=== PATIENT | male | born 1975 | race African-American/Black ===

== ENCOUNTER 2019-11-09 19:55 | Emergency (ER) | payer OTHER, SELFPAY ==
[2019-11-09 20:20] VITALS: BP 178/93; PULSE 104; RESP 18; TEMP 36.9; O2SAT 100
[2019-11-09 20:54] LABS: Basophils Percent Auto 0.6 % (0.2-1.2); Eosinophils Absolute Auto 0.2 K/mm3 (0-0.3); Eosinophils Percent Auto 2.5 % (0-4.4); Hematocrit 44.3 % (42.0-52.0); Hemoglobin 14.9 g/dL (14.0-18.0); Immature Granulocyte Absolute 0.01 K/mm3 (0.00-0.031); Immature Granulocyte Percent A 0.1 % (0-0.5); Lymphocytes Absolute Auto 2.14 K/mm3 (0.9-3.2); Lymphocytes Percent Auto 31.4 % (18.3-44.2); Mean Corpuscular HGB Conc 33.6 g/dl (32-36); Mean Corpuscular Hemoglobin 31.4 pg (26-34); Mean Corpuscular Volume 93.5 fl (80-100); Mean Platelet Volume 10.4 fl (7.4-10.4); Monocytes Absolute Auto 0.6 K/mm3 (0.1-0.6); Monocytes Percent Auto 8.4 % (2.6-8.5); Neutrophils Absolute Auto 3.9 K/mm3 (1.3-6.7); Platelet Count Result 261 k/mm3 (150-375); Red Blood Count 4.74 M/mm3 (4.6-6.20); Red Cell Distribution Width 11.3 % (11.5-14.5); White Blood Count 6.8 K/mm3 (4.5-10.0)
[2019-11-09 21:06] LABS: Alanine Aminotransferase 23 U/L (4-50); Albumin Level 4.6 g/dL (3.5-5.1); Alkaline Phosphatase 60 U/L (38-126); Aspartate Amino Transferase 29 U/L (17-59); Bilirubin,Total 0.4 mg/dL (0.2-1.3); Blood Urea Nitrogen 28 mg/dL (9-20); Calcium 9.1 mg/dL (8.4-10.2); Carbon Dioxide 26 mmol/L (22-30); Chloride 98 mmol/L (98-107); Estimated CRCL calculation 61 ml/min; Estimated Glomerular Filt Rate > 60; Glucose 100 mg/dL (75-110); Lipase 125 U/L (23-300); Potassium 4.4 mmol/L (3.4-5.0); Sodium 138 mmol/L (137-145)
--- NOTE | 2019-11-09 21:15 | ED.NAVMDI ---
HPI - Nausea/Vomiting/Diarrhea General Chief complaint: Nausea/Vomiting/Diarrhea Stated complaint: spider bite Time Seen by Provider: 11/09/19 21:12 Related Data Home Medications Medication Instructions Recorded Confirmed amlodipine 10 mg PO DAILY 07/28/19 07/28/19 Allergies Allergy/AdvReac Type Severity Reaction Status Date / Time hydrocodone [From Vicodin] Allergy Hives Verified 07/28/19 12:20 Iodinated Contrast Media AdvReac Nausea and Verified 07/28/19 12:20 Vomiting PMFSH Past Medical History Medical History (Updated 07/29/19 @ 13:01 by Hema Romero PA-C) Atypical chest pain Boil of buttock with surgery Hyperlipidemia Hypertension Surgical History Surgical History (Updated 07/28/19 @ 02:43 by Socorro Izaguirre) History of orthopedic surgery lt fingers Family History Family History (Updated 07/28/19 @ 12:32 by Jennifer Zapata RN) Father Hypertension Diabetes mellitus Social History Social History (Updated 07/28/19 @ 02:43 by Socorro Izaguirre) Smoking packs per day: 0.25 Smoking cigarettes per day: 5.0 Years smoked: 10 Smoking pack-years: 2.50 Smoking status: Former smoker Tobacco type: cigarettes Alcohol intake: current Substance use: current Substance use type: marijuana Other substance usage details: DRINKS @ 1/2 P[place]OD[place] DAILY Last use: 07/25/19 Gender identity (if verbalized by the patient): Male Spiritual care concerns: No Agree to blood products: No Course Vital Signs Vital signs: Vital Signs Temperature 36.9 C 11/09/19 20:20 Pulse Rate 104 H 11/09/19 20:20 Respiratory Rate 18 11/09/19 20:20 Blood Pressure 178/93 H 11/09/19 20:20 Pulse Oximetry 100 11/09/19 20:20 Temperature 36.9 C 11/09/19 20:20 Pulse Rate 104 H 11/09/19 20:20 Respiratory Rate 18 11/09/19 20:20 Blood Pressure 178/93 H 11/09/19 20:20 Pulse Oximetry 100 11/09/19 20:20 MDM - Nausea/Vomiting/Diarrhea Lab Data Result diagrams: 11/09/19 20:47 11/09/19 20:47 Labs: Lab Results 11/09/19 11/09/19 Range/Units 20:47 20:47 WBC 6.8 (4.5-10.0) K/mm3 RBC 4.74 (4.6-6.20) M/mm3 Hgb 14.9 (14.0-18.0) g/dL Hct 44.3 (42.0-52.0) % MCV 93.5 (80-100) fl MCH 31.4 (26-34) pg MCHC 33.6 (32-36) g/dl RDW 11.3 L (11.5-14.5) % Plt Count 261 (150-375) k/mm3 MPV 10.4 (7.4-10.4) fl Immature Gran % (Auto) 0.1 (0-0.5) % Neut % (Auto) 57.0 (45.5-73.1) % Lymph % (Auto) 31.4 (18.3-44.2) % [place] % (Auto) 8.4 (2.6-8.5) % Eos % (Auto) 2.5 (0-4.4) % Baso % (Auto) 0.6 (0.2-1.2) % Lymph # (Auto) 2.14 (0.9-3.2) K/mm3 [place] # (Auto) 0.6 (0.1-0.6) K/mm3 Eos # (Auto) 0.2 (0-0.3) K/mm3 Baso # (Auto) 0.0 (0.0-0.1) K/mm3 Abs Immat Gran (auto) 0.01 (0.00-0.031) K/mm3 Absolute Neuts (auto) 3.9 (1.3-6.7) K/mm3 Absolute Nucleated RBC 0.0 (0.0-0.012) K/mm3 Nucleated RBC % 0.0 (0.0-0.2) % Sodium 138 (137-145) mmol/L Potassium 4.4 (3.4-5.0) mmol/L Chloride 98 (98-107) mmol/L Carbon Dioxide 26 (22-30) mmol/L BUN 28 H (9-20) mg/dL Creatinine 1.30 (0.7-1.3) mg/dL Estim Creat Clear Calc 61 ml/min Estimated GFR > 60 (59 - ) Glucose 100 (75-110) mg/dL Calcium 9.1 (8.4-10.2) mg/dL Total Bilirubin 0.4 (0.2-1.3) mg/dL AST 29 (17-59) U/L ALT 23 (4-50) U/L Alkaline Phosphatase 60 (38-126) U/L Total Protein 8.0 (6.3-8.2) g/dL Albumin 4.6 (3.5-5.1) g/dL Lipase 125 (23-300) U/L Discharge Plan Discharge Prescriptions: No Action amlodipine 10 mg tablet 10 mg PO DAILY RF: 0
[2019-11-09 21:27] VITALS: BP 150/90; PULSE 81; RESP 16; TEMP 36.5; O2SAT 100
[2019-11-09 21:28] VITALS: BP 150/113; BP 151/81; BP 153/98; PULSE 81; PULSE 86; PULSE 91
--- NOTE | 2019-11-09 21:31 | ED.WOUNDLAC ---
HPI - Wound/Laceration General Chief Complaint: Wound/Laceration Stated Complaint: spider bite Time Seen by Provider: 11/09/19 21:12 Source: patient and RN notes reviewed Mode of arrival: other Limitations: no limitations History of Present Illness HPI narrative: Pt is a 43 y/o male who presents to the ED with c/o erythema and pain to his LLE that began a week ago after a possible spider bite. Pt was given abx for his sx, but he states the abx gave him diarrhea so he stopped taking the medication. Pt was recommended to come to the ED for further evaluation. Pt denies a fever and nasuea. Onset (ago): week(s) (1) Location: other (LLE) Associated symptoms: other (diarrhea) Related Data Home Medications Medication Instructions Recorded Confirmed amlodipine 10 mg PO DAILY 07/28/19 07/28/19 Allergies Allergy/AdvReac Type Severity Reaction Status Date / Time hydrocodone [From Vicodin] Allergy Hives Verified 11/09/19 21:29 Iodinated Contrast Media AdvReac Nausea and Verified 11/09/19 21:29 Vomiting Review of Systems Review of Systems: All systems reviewed & are unremarkable except as noted in HPI and below Constitutional: Constitutional: Denies fever(s) Gastrointestinal: Gastrointestinal: Reports diarrhea and Denies nausea Integumentary/Breasts: Skin/Breast: Reports erythema (with pain to his LLE) PMF Past Medical History Medical History (Updated 07/29/19 @ 13:01 by Hema Romero PA-C) Atypical chest pain Boil of buttock with surgery Hyperlipidemia Hypertension Surgical History Surgical History (Updated 07/28/19 @ 02:43 by Socorro Izaguirre) History of orthopedic surgery lt fingers Family History Family History (Updated 07/28/19 @ 12:32 by Jennifer Zapata, CHELSEA) Father Hypertension Diabetes mellitus Social History Social History (Updated 07/28/19 @ 02:43 by Socorro Izaguirre) Smoking packs per day: 0.25 Smoking cigarettes per day: 5.0 Years smoked: 10 Smoking pack-years: 2.50 Smoking status: Former smoker Tobacco type: cigarettes Alcohol intake: current Substance use: current Substance use type: marijuana Other substance usage details: DRINKS @ 1/2 [place] DAILY Last use: 07/25/19 Gender identity (if verbalized by the patient): Male Spiritual care concerns: No Agree to blood products: No Course Vital Signs Vital signs: Vital Signs Temperature 36.9 C 11/09/19 20:20 Pulse Rate 104 H 11/09/19 20:20 Respiratory Rate 18 11/09/19 20:20 Blood Pressure 178/93 H 11/09/19 20:20 Pulse Oximetry 100 11/09/19 20:20 Temperature 36.5 C 11/09/19 21:27 Pulse Rate 91 11/09/19 21:28 Respiratory Rate 16 11/09/19 21:27 Blood Pressure 153/98 H 11/09/19 21:28 Pulse Oximetry 100 11/09/19 21:27 MDM - Wound/Laceration Lab Data Result diagrams: 11/09/19 20:47 11/09/19 20:47 Labs: Lab Results 11/09/19 11/09/19 11/09/19 Range/Units 20:47 20:47 21:44 WBC 6.8 (4.5-10.0) K/mm3 RBC 4.74 (4.6-6.20) M/mm3 Hgb 14.9 (14.0-18.0) g/dL Hct 44.3 (42.0-52.0) % MCV 93.5 (80-100) fl MCH 31.4 (26-34) pg MCHC 33.6 (32-36) g/dl RDW 11.3 L (11.5-14.5) % Plt Count 261 (150-375) k/mm3 MPV 10.4 (7.4-10.4) fl Immature Gran % (Auto) 0.1 (0-0.5) % Neut % (Auto) 57.0 (45.5-73.1) % Lymph % (Auto) 31.4 (18.3-44.2) % [place] % (Auto) 8.4 (2.6-8.5) % Eos % (Auto) 2.5 (0-4.4) % Baso % (Auto) 0.6 (0.2-1.2) % Lymph # (Auto) 2.14 (0.9-3.2) K/mm3 [place] # (Auto) 0.6 (0.1-0.6) K/mm3 Eos # (Auto) 0.2 (0-0.3) K/mm3 Baso # (Auto) 0.0 (0.0-0.1) K/mm3 Abs Immat Gran (auto) 0.01 (0.00-0.031) K/mm3 Absolute Neuts (auto) 3.9 (1.3-6.7) K/mm3 Absolute Nucleated RBC 0.0 (0.0-0.012) K/mm3 Nucleated RBC % 0.0 (0.0-0.2) % Sodium 138 (137-145) mmol/L Potassium 4.4 (3.4-5.0) mmol/L Chloride 98 (98-107) m
[2019-11-09 21:55] LABS: Add Urine Microscopic? YES; Appearance Urine Clear (Clear); Bacteria Urine Trace /hpf; Bilirubin Urine Negative (Negative); Blood Urine Negative (Negative); Color Urine Straw (Yellow); Glucose Urine UA Negative (Negative); Ketones Urine Negative (Negative); Leukocyte Esterase Ur Negative LEU/UL (Negative); Mucus Urine Rare /lpf; Nitrate Urine Negative (Negative); Protein Urine Negative (Negative); RBC Urine 0-2 /hpf (0-2); Specific Grav Ur 1.018 (1.001-1.035); WBC Urine 0-3 /hpf
== END 2019-11-09 22:42 | disposition home or self-care (01) ==
PROVIDERS: Emergency Medicine; Emergency Provider Family Medicine; PCP Internal Medicine
DX: E78.5 Hyperlipidemia, unspecified (principal); I10 Essential (primary) hypertension; F17.210 Nicotine dependence, cigarettes, uncomplicated; L03.116 Cellulitis of left lower limb
CPT/HCPCS: 36415; 80053; 81001; 83690; 85025; 99283

== ENCOUNTER 2020-02-14 21:38 | Emergency (ER) | payer OTHER, SELFPAY ==
--- NOTE | ~2020-02-14 | XR_ITS ---
EXAMINATION: XR chest 2V DATE: 02/14/2020 22:11 INDICATION: Hypertension presenting with sharp left-sided chest pain. TECHNIQUE: PA and lateral views of the chest were obtained. COMPARISON: Chest radiograph dated 07/28/2019 FINDINGS: The lungs remain clear with no focal airspace opacities, pulmonary edema, pleural effusion or pneumot horax. The cardiomediastinal silhouette is normal. Mild thoracic spondylosis. IMPRESSION: 1. No acute cardiopulmonary disease. Reviewed, dictated and finalized at location A.
[2020-02-14 21:43] VITALS: BP 149/86; PULSE 88; RESP 18; TEMP 37.1; O2SAT 100
--- NOTE | 2020-02-14 21:47 | ECG_ITS ---
Measurements Intervals [place] Rate: 88 P: 55 ID: [id number] QRS: 27 QRSD: 80 T: 15 QT: 332 QTc: 403 Interpretive Statements SINUS RHYTHM LOW QRS VOLTAGE IN PRECORDIAL LEADS CANNOT RULE OUT SEPTAL INFARCT, AGE INDETERMINATE ABNORMAL ECG Electronically Signed On 02-15-2020 11:25:40 CDT by Patel Morton D.O.
[2020-02-14 21:52] VITALS: BP 166/95; PULSE 86; RESP 20; O2SAT 100
[2020-02-14 22:13] LABS: Basophils Percent Auto 0.4 % (0.2-1.2); Eosinophils Absolute Auto 0.1 K/mm3 (0-0.3); Hematocrit 48.9 % (42.0-52.0); Hemoglobin 16.7 g/dL (14.0-18.0); Immature Granulocyte Absolute 0.01 K/mm3 (0.00-0.031); Immature Granulocyte Percent A 0.1 % (0-0.5); Lymphocytes Absolute Auto 2.56 K/mm3 (0.9-3.2); Lymphocytes Percent Auto 37.4 % (18.3-44.2); Mean Corpuscular HGB Conc 34.2 g/dl (32-36); Mean Corpuscular Hemoglobin 31.8 pg (26-34); Mean Corpuscular Volume 93.1 fl (80-100); Mean Platelet Volume 11.2 fl (7.4-10.4); Monocytes Absolute Auto 0.4 K/mm3 (0.1-0.6); Monocytes Percent Auto 6.3 % (2.6-8.5); Neutrophils Absolute Auto 3.7 K/mm3 (1.3-6.7); Neutrophils Percent Auto 53.8 % (45.5-73.1); Platelet Count Result 238 k/mm3 (150-375); Red Blood Count 5.25 M/mm3 (4.6-6.20); Red Cell Distribution Width 11.4 % (11.5-14.5); White Blood Count 6.8 K/mm3 (4.5-10.0)
[2020-02-14 22:21] LABS: Prothrombin Time 12.6 Seconds (11.1-14.7)
[2020-02-14 22:22] LABS: Partial Thromboplastin Time 33.2 SECONDS (22.3-36.8)
--- NOTE | 2020-02-14 22:24 | ED.CHESTPAIN ---
HPI - Chest Pain General Chief Complaint: Chest Pain Stated Complaint: cp Time Seen by Provider: 02/14/20 22:11 History of Present Illness HPI narrative: Patient presents with left-sided chest pain. This been going on for years. Worse today. He has intermittent sharp spiking chest pains that last only a second or 2. He is seen by cardiology for this, and no cause was found. He takes Norvasc 10 for his hypertension, and is worried that no one is able to give him a diagnosis for this sharp spiking chest pain. He has not otherwise been sick. He had surgery in his right groin boils x2. He does not smoke, he last drank alcohol and smoked marijuana a week ago. 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 complaint: chest pain Onset (ago): year(s) Timing of current episode: episodic Prior episodes: Yes Onset: during rest Pain location: left chest Pain radiation: none Severity: mild Quality: sharp Relieving factors: nothing Exacerbating factors: nothing Related Data Home Medications Medication Instructions Recorded Confirmed amlodipine 10 mg PO DAILY 07/28/19 07/28/19 Allergies Allergy/AdvReac Type Severity Reaction Status Date / Time hydrocodone [From Vicodin] Allergy Hives Verified 02/14/20 22:39 Iodinated Contrast Media AdvReac Nausea and Verified 02/14/20 22:39 Vomiting Review of Systems Review of Systems: Narrative: CONSTITUTIONAL: Denies fever, chills, or sweats. EYES: Denies visual changes, redness, or discharge. ENT: Denies rhinorrhea, congestion, sore throat, or otalgia. CARDIOVASCULAR: Denies palpitations, or edema. RESPIRATORY: Denies cough or dyspnea. GASTROINTESTINAL: Denies abdominal pain, nausea, vomiting, or diarrhea. GENITOURINARY: Denies dysuria or hematuria. SKIN: Denies rash or itching. MUSCULOSKELETAL: Denies back pain, joint pain, or myalgia. NEUROLOGIC: Denies headache, numbness, or weakness. PSYCHIATRIC: Denies anxiety or depression. [facility] Past Medical History Medical History Atypical chest pain Boil of buttock with surgery Hyperlipidemia Hypertension Surgical History Surgical History History of orthopedic surgery lt fingers Family History Family History (Updated 07/28/19 @ 12:32 by Jennifer Zapata RN) Father Hypertension Diabetes mellitus Social History Social History Smoking packs per day: 0.25 Smoking cigarettes per day: 5.0 Years smoked: 10 Smoking pack-years: 2.50 Smoking status: Former smoker Tobacco type: cigarettes Alcohol intake: current Substance use: current Substance use type: marijuana Other substance usage details: DRINKS @ 1/2 [place] DAILY Last use: 07/25/19 Gender identity (if verbalized by the patient): Male Spiritual care concerns: No Agree to blood products: No Exam Narrative: Exam Narrative: GENERAL: Well-appearing, well-nourished, and in no acute distress. Multiple tattoos. HEAD: Normocephalic, atraumatic. EYES: PERRLA and EOMI. ENT: Nares clear, no rhinorrhea or epistaxis. Mucous membranes moist. NECK: Supple. CHEST: Clear to auscultation. No respiratory distress. HEART: Regular rate and rhythm. No murmur heard. Normal peripheral pulses. ABDOMEN: Soft, nontender, nondistended, normal active bowel sounds. EXTREMITIES: Normal range of motion. No edema. SKIN: Warm, dry, no rash. NEURO: No focal deficits. Alert and oriented x3. PSYCH: Flat affect, looks worried. Course Reevaluation(s) Reevaluation #1: Willing to explain to the patient his normal test results. He still would like to know why he has these left chest pain. I explained that I found no disease process but that he should follow-up with either his spot washer or ours who is Dr. Walker. Maybe they will do a heart monitor test. He smiled and took a deep sigh. I told him he co
[2020-02-14 22:32] LABS: Blood Urea Nitrogen 21 mg/dL (9-20); Calcium 9.2 mg/dL (8.4-10.2); Carbon Dioxide 30 mmol/L (22-30); Chloride 98 mmol/L (98-107); Estimated Glomerular Filt Rate > 60; Glucose 125 mg/dL (75-110); Potassium 3.8 mmol/L (3.4-5.0); Sodium 136 mmol/L (137-145)
[2020-02-14 22:38] VITALS: BP 127/91; PULSE 100; RESP 20; O2SAT 100
[2020-02-14] MEDS: ASPIRIN 81 MG CHEWABLE TABLET 324 MG PO (22:38)
[2020-02-14 22:52] LABS: Lipase 143 U/L (23-300)
[2020-02-14 22:59] LABS: Troponin I < 0.012 ng/mL (0.000-0.034)
[2020-02-14 23:26] VITALS: BP 123/86; PULSE 60; RESP 20; O2SAT 100
== END 2020-02-14 23:27 | disposition home or self-care (01) ==
PROVIDERS: Emergency Provider Emergency Medicine; PCP Internal Medicine
DX: R07.89 Other chest pain (principal); E78.5 Hyperlipidemia, unspecified; I10 Essential (primary) hypertension; Z87.440 Personal history of urinary (tract) infections; R94.31 Abnormal electrocardiogram [ECG] [EKG]
CPT/HCPCS: 36415; 71046; 80048; 83690; 84484; 85025; 85610; 85730; 93005; 99284; A9270

== ENCOUNTER 2022-07-28 00:32 | Emergency (ER) | payer OTHER, SELFPAY ==
--- NOTE | ~2022-07-28 | XR_ITS ---
EXAMINATION: XR chest 2V DATE: 07/28/2022 01:30 INDICATION: Chest pain TECHNIQUE: PA and lateral views of the chest were obtained. COMPARISON: Chest radiograph dated 02/13/22 FINDINGS: The lungs remain clear with no focal airspace opacities, pulmonary edema, pleural effusion or pneumot horax. The cardiomediastinal silhouette is normal. Mild thoracic spondylosis. IMPRESSION: 1. No acute cardiopulmonary disease. Reviewed, dictated and finalized at location A. 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
--- NOTE | 2022-07-28 00:35 | ECG_ITS ---
Measurements Intervals [place] Rate: 71 P: 26 MA: 175 QRS: 24 QRSD: 75 T: 12 QT: 360 QTc: 393 Interpretive Statements SINUS RHYTHM ANTEROSEPTAL INFARCT, AGE INDETERMINATE ABNORMAL ECG COMPARED TO ECG 02/14/2020 21:44:34 NO SIGNIFICANT CHANGES Electronically Signed On 07-28-2022 7:57:29 PROGRAM ASSISTANT by Patel Morton D.O.
[2022-07-28 00:42] VITALS: BP 128/81; PULSE 76; RESP 16; TEMP 36.6; O2SAT 100
[2022-07-28 00:56] LABS: Basophils Percent Auto 0.3 % (0.2-1.2); Eosinophils Absolute Auto 0.2 K/mm3 (0-0.3); Eosinophils Percent Auto 3.1 % (0-4.4); Hematocrit 45.6 % (42.0-52.0); Hemoglobin 15.7 g/dL (14.0-18.0); Immature Granulocyte Absolute 0.02 K/mm3 (0.00-0.031); Immature Granulocyte Percent A 0.3 % (0-0.5); Lymphocytes Absolute Auto 2.11 K/mm3 (0.9-3.2); Lymphocytes Percent Auto 31.4 % (18.3-44.2); Mean Corpuscular HGB Conc 34.4 g/dl (32-36); Mean Corpuscular Hemoglobin 32.2 pg (26-34); Mean Corpuscular Volume 93.6 fl (80-100); Mean Platelet Volume 10.7 fl (7.4-10.4); Monocytes Absolute Auto 0.4 K/mm3 (0.1-0.6); Monocytes Percent Auto 6.6 % (2.6-8.5); Neutrophils Absolute Auto 3.9 K/mm3 (1.3-6.7); Neutrophils Percent Auto 58.3 % (45.5-73.1); Platelet Count Result 235 k/mm3 (150-375); Red Blood Count 4.87 M/mm3 (4.6-6.20); Red Cell Distribution Width 11.6 % (11.5-14.5); White Blood Count 6.7 K/mm3 (4.5-10.0)
[2022-07-28 01:06] LABS: Alanine Aminotransferase 22 U/L (6-50); Albumin Level 4.7 g/dL (3.5-5.1); Alkaline Phosphatase 61 U/L (38-126); Anion Gap 12 mmol/L (8-16); Aspartate Amino Transferase 29 U/L (17-59); Bilirubin,Total 0.6 mg/dL (0.2-1.3); Blood Urea Nitrogen 26 mg/dL (9-20); Carbon Dioxide 28 mmol/L (22-30); Chloride 100 mmol/L (98-107); Estimated CRCL calculation 77 ml/min; Estimated Glomerular Filt Rate > 60; Glucose 95 mg/dL (65-110); INR 1.1; Lipase 97 U/L (23-300); Potassium 3.5 mmol/L (3.4-5.0); Prothrombin Time 13.2 Seconds (11.1-14.7); Sodium 140 mmol/L (137-145)
[2022-07-28 01:07] LABS: Partial Thromboplastin Time 38.9 SECONDS (22.3-36.8)
[2022-07-28 01:17] LABS: Troponin I < 0.012 ng/mL (0.000-0.034)
[2022-07-28] MEDS: ASPIRIN 81 MG CHEWABLE TABLET 324 MG PO (01:29)
[2022-07-28 01:46] LABS: D Dimer 0.32 ug/mL (<0.48)
--- NOTE | 2022-07-28 02:16 | ED.GENADULT ---
HPI - General Adult General Chief complaint: Chest Pain Stated complaint: chest pain, new onset Time Seen by Provider: 07/28/22 00:57 History of Present Illness HPI narrative: Patient is a 46-year-old gentleman who presents the emergency department with a chief complaint of chest discomfort. The patient reports that today he had an episode where he had some tightness in his chest that started early this morning. Patient reports been throughout the day reports its not improved by anything patient reports no prior cardiac history. Patient reports the pain is more sharp like the patient reports no diaphoresis. Related Data Home Medications Medication Instructions Recorded Confirmed amlodipine 10 mg tablet 10 mg PO DAILY 07/28/19 02/14/20 Allergies Allergy/AdvReac Type Severity Reaction Status Date / Time hydrocodone [From Vicodin] Allergy Hives Verified 07/28/22 00:33 Iodinated Contrast Media AdvReac Nausea and Verified 07/28/22 00:33 Vomiting Review of Systems Review of Systems: A 10 system review of systems was completed on the patient and is negative except for what is stated in the HPI. Nursing and ancillary documentation was reviewed. PMFSH Past Medical History Medical History (Updated 07/28/22 @ 03:59 by Robert Rascon MD) Atypical chest pain Boil of buttock with surgery Hyperlipidemia Hypertension Surgical History Surgical History History of orthopedic surgery lt fingers Family History Family History Father Hypertension Diabetes mellitus Social History Social History Smoking packs per day: 0.25 Smoking cigarettes per day: 5.0 Years smoked: 10 Smoking pack-years: 2.50 Smoking status: Former smoker Tobacco type: cigarettes Alcohol intake: current Substance use: current Substance use type: marijuana Other substance usage details: DRINKS @ 1/2 [place] DAILY Last use: 07/25/19 Gender identity (if verbalized by the patient): Male Spiritual care concerns: No Agree to blood products: No Exam Narrative: GENERAL: Well-appearing, well-nourished, and in no acute distress. HEAD: Normocephalic, atraumatic. EYES: PERRLA and EOMI. ENT: Nares clear, no rhinorrhea or epistaxis. Mucous membranes moist. NECK: Supple. CHEST: Clear to auscultation. No respiratory distress. HEART: Regular rate and rhythm. No murmur heard. Normal peripheral pulses. ABDOMEN: Soft, nontender, nondistended, normal active bowel sounds. EXTREMITIES: Normal range of motion. No edema. SKIN: Warm, dry, no rash. NEURO: No focal deficits. Alert and oriented x3. PSYCH: Normal mood and affect. Course Course Emergency Course: EKG is sinus rhythm at rate of [address] elevation or ST depression Vital Signs Vital signs: Vital Signs Temperature 36.6 C 07/28/22 00:42 Pulse Rate 76 07/28/22 00:42 Respiratory Rate 16 07/28/22 00:42 Blood Pressure 128/81 07/28/22 00:42 Pulse Oximetry 100 07/28/22 00:42 Temperature 36.6 C 07/28/22 00:42 Pulse Rate 76 07/28/22 00:42 Respiratory Rate 16 07/28/22 00:42 Blood Pressure 128/81 07/28/22 00:42 Pulse Oximetry 100 07/28/22 00:42 Medical Decision Making Vital Signs Vital Signs: Vital Signs Temperature 36.6 C 07/28/22 00:42 Pulse Rate 76 07/28/22 00:42 Respiratory Rate 16 07/28/22 00:42 Blood Pressure 128/81 07/28/22 00:42 Pulse Oximetry 100 07/28/22 00:42 Temperature 36.6 C 07/28/22 00:42 Pulse Rate 76 07/28/22 00:42 Respiratory Rate 16 07/28/22 00:42 Blood Pressure 128/81 07/28/22 00:42 Pulse Oximetry 100 07/28/22 00:42 Lab Data Result diagrams: 07/28/22 00:46 07/28/22 00:46 Labs: Lab Results 07/28/22 07/28/22 07/28/22 Range/Units
[2022-07-28 04:09] VITALS: BP 112/83; PULSE 68; RESP 18; O2SAT 100
[2022-07-28 04:48] LABS: Troponin I < 0.012 ng/mL (0.000-0.034)
== END 2022-07-28 04:11 | disposition home or self-care (01) ==
PROVIDERS: Emergency Provider Emergency Medicine; PCP Internal Medicine
DX: R07.89 Other chest pain (principal); E78.5 Hyperlipidemia, unspecified; I10 Essential (primary) hypertension; Z87.891 Personal history of nicotine dependence; R94.31 Abnormal electrocardiogram [ECG] [EKG]
CPT/HCPCS: 36415; 71046; 80053; 83690; 84484; 85025; 85380; 85610; 85730; 93005; 99284; A9270

== ENCOUNTER 2024-12-14 10:26 | Day surgery (SDC) | payer OTHER, SELFPAY ==
[2024-09-25 10:55] VITALS: BMI 31.0
[2024-12-14 11:14] VITALS: BP 120/83; PULSE 91; RESP 16; TEMP 36.6; O2SAT 100
[2024-12-14] MEDS: LACTATED RINGERS 1,000 ML 150 ML IV CONT (11:19)
--- NOTE | 2024-12-14 12:44 | P.HP_ITS ---
H&P: HPI History of Present Illness Date/Time: 12/14/24 12:44 Chief Complaint: Family history of colorectal cancer Narrative: This patient has family history of colorectal cancer. his brother had colorectal cancer at age 47. Review of Systems Review of Systems: All systems reviewed & are unremarkable except as noted in HPI and below PMFSH Past Medical History Medical History (Updated 12/14/24 @ 12:45 by Hussein Dang MD) Atypical chest pain Boil of buttock with surgery Hyperlipidemia Hypertension Surgical History Surgical History History of orthopedic surgery lt fingers Family History Family History Father Hypertension Diabetes mellitus Social History Social History Smoking packs per day: 0.25 Smoking cigarettes per day: 5.0 Years smoked: 10 Smoking pack-years: 2.50 Smoking status: Former smoker Tobacco type: cigarettes Additional smoking assessment comments: Quit 2018 Alcohol intake: former Alcohol use details: Quit 09-09-2024 Substance use: former Substance use type: marijuana Last use: 07/25/19 Living arrangements: with family Gender identity (if verbalized by the patient): Male Spiritual care concerns: No Agree to blood products: No Meds Home Medications and Allergies Home Medications ?Medication ?Instructions ?Recorded ?Confirmed ?Type amlodipine 10 mg tablet 10 mg PO DAILY 07/28/19 12/14/24 History atorvastatin 20 mg tablet 20 mg PO HS 11/24/24 12/14/24 History Allergies Allergy/AdvReac Type Severity Reaction Status Date / Time hydrocodone (From Vicodin) Allergy Hives Verified 12/14/24 11:13 Iodinated Contrast Media AdvReac Nausea and Verified 12/14/24 11:13 Vomiting Vital Signs Vital Signs - 24 hr 12/14/24 11:14 Temperature 97.9 F Pulse Rate 91 Respiratory Rate 16 Blood Pressure 120/83 Pulse Oximetry 100 Oxygen Delivery Room Air Exam Const: General: cooperative and healthy appearing Resp: Effort & Inspection: normal respiratory effort and able to speak in comp lete sentences Auscultation: clear to auscultation bilaterally Cardio: Rate: regular rate Rhythm: regular rhythm GI: Inspection: normal to inspection GI Palp: No No hepatosplenomegaly present Auscultation: normal bowel sounds Rectal Exam: deferred Skin: General skin exam: normal color Psych: Appearance: grossly normal Mental Status: mental status grossly normal Assessment and Plan Assessment and plan (1) Family history of colon cancer: Code(s): Z80.0 - Family history of malignant neoplasm of digestive organs Status: Acute Assessment and Plan: The patient is deemed a good candidate for the procedure. Consent signed. Wi ll proceed.
--- OUTSIDE RECORDS SUMMARY | 2024-12-14 12:47 | XMS_ITS | Clinical Summary ---
Author Organization [facility] [address] Address [address] [place] [address] Care Team Providers Care [employer] T[employer] Name Role Phone Case Blas MD Primary Care Provider [phone] Allergies Active Allergy Reactions Criticality Noted Date Comments Hydrocodone Hives Medium 09/01/2023 Social History Tobacco Use Types Packs/Day Years Used Date Smoking Tobacco: Never Assessed Personal Safety Answer Date Recorded Have you ever been in or are you currently in a harmful physical or emotional relationship or is someone making you feel afraid or unsafe? 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 [employer] SUPER[employer] Gender Identity Not on file Sexual Orientation Not on file Last Filed Vital Signs Vital Sign Reading Time Taken Comments Blood Pressure 133/82 09/01/2023 8:30 PM [employer] SUPERVISOR Pulse 80 09/01/2023 8:30 PM [employer] SUPERVISOR Temperature 37 C (98.6 F) 09/01/2023 5:08 PM [employer] SUPERVISOR Respiratory Rate 24 09/01/2023 8:30 PM [employer] SUPERVISOR Oxygen Saturation 100% 09/01/2023 8:30 PM [employer] SUPER[employer]OR Inhaled Oxygen Concentration - - Weight 87.5 kg (192 lb 14.4 oz) 09/01/2023 5:08 PM [employer] SUPERVISOR Height 170.2 cm (5' 7 ) 09/01/2023 5:08 PM [employer] SUPER[employer]OR Body Mass Index 30.21 09/01/2023 5:08 PM [employer] SUPER[employer]OR Plan of Treatment Health Maintenance Due Date Last Done Comments Colon Cancer Screening-Colonoscopy 1974 Depression Screening 1974 Hepatitis C Screening 1974 Prostate Cancer Screening-PSA 1974 DTaP/Tdap/Td Vaccine (1 - Tdap) 1985 Hepatitis B Screening 1992 Regular Well Visit/Exam 18-64 1992 Covid-19 Vaccine (2023-2 5 season) 2024 01/23/2021, 01/02/2021 Influenza Vaccine (Season Ended) 2025 Pneumococcal vaccine <65 Aged Out No longer eligible based on patient's age to complete this topic Insurance [facility] CHOICE PLUS [facility] HMO/PPO Address: [facility] [address] [place] [address] Care Teams [employer] T[employer] Relationship Specialty Start Date End Date Case Blas MD PCP - General Internal Medicine 02/22/20
--- OUTSIDE RECORDS SUMMARY | 2024-12-14 12:47 | XMS_ITS | CONTINUITY OF CARE DOCUMENT ---
Author Name monster hook Address Unknown Organization [facility] Address [id number] [place] [address] Phone [phone] Care Team Providers Care Administrative Director Name Role Phone Romain MARIA, Judith Houston Unavailable Case Blas MD Unavailable [phone] Case Blas MD Unavailable [phone] PROBLEMS Condition Status Date Provider Notes CHEST PAIN-11/18 NUC NL-11/15 RT STRESS NEG active ? Fermin Garcia MD HTN- 06/19 ECHO EF 60 - 07/18 ECHO EF 60 active ? Fermin Garcia MD TOBACCO ABUSE-QUIT active Fermin Garcia MD Syncope and collapse active Judith salazar MD Cardiovascular Condition Screening active S jasson Hoyos MD ENCOUNTERS Date Type Provider Location Encounter Diag nosis - In-person encounter Office Visit Judith Hoyos MD [facility] - In-person encounter Office Visit Judith Hoyos MD [facility] Syncope and collapseCardiovascular Condition Screening - In-person encounter Office Visit Fermin Garcia MD [facility] - In-person encounter Office Visit Fermin Garcia MD [facility] - In-person encounter Office Visit Fermin Garcia MD [facility] - In-person encounter Office Visit Fermin Garcia MD [facility] - In-person encounter Office Visit Fermin Garcia MD [facility] - In-person encounter Office Visit Fermin Garcia MD [facility] - In-person encounter Office Visit Fermin Garcia MD [facility] CHEST PAIN-11/18 NUC NL-11/15 RT STRESS NEGHTN- 06/19 ECHO EF 60 - 07/18 ECHO EF 60TOBACCO ABUSE-QUIT - In-person encounter Office Visit Fermin Garcia MD [facility] - In-person encounter Office Visit Jelani Temple MD [facility] - In-person encounter Office Visit Fermin Garcia MD [facility] - In-person encounter Office Visit Fermin Garcia MD [facility] - In-person encounter Office Visit Fermin Garcia MD [facility] TOBACCO ABUSE-QUIT - In-person encounter Office Visit Fermin Garcia MD [facility] HTN- 06/19 ECHO EF 60 - 07/18 ECHO EF 60 VITAL SIGNS Date Observation Value Provider Body Mass Index (Ratio) 32.10 kg/m2 Saeid Hoyos MD blood pressure, cuff size regular Ke rri Minda blood pressure, diastolic 96 mm[Hg] Ke rri Minda blood pressure, systolic 134 mm[Hg] Brii Perla oxygen saturation, oximetry 99 % Sandra Perla respiratory rate E&M 12 /min Sandra vogt pulse rate 83 /min Sandra Yo lder weight E&M 205 [lb_av] Sandra Yo lder height E&M 67 [in_i] Sandra Goodmichaelmary jo lder weight E&M 204 [lb_av] Rossana espinoza Body Mass Index (Ratio) 31.95 kg/m2 Saeid Hoyos MD blood pressure, diastolic 89 mm[Hg] Li [facility]kLogic blood pressure, systolic 146 mm[Hg] Charmaine kLogic blood pressure, cuff size regular Ja rret blood pressure, diastolic 89 mm[Hg] Ja rret blood pressure, systolic 146 mm[Hg] Jar ret pulse rate 89 /min Anthony y oxygen saturation, oximetry 98 % Anthony respiratory rate E&M 12 /min Anthony weight E&M 204 [lb_av] Anthony y height E&M 67 [in_i] Anthony erda y blood pressure, diastolic 90 mm[Hg] Jeremy Figueroa blood pressure, systolic 140 mm[Hg] Devora Figueroa Body Mass Index (Ratio) 31.48 kg/m2 Karen Garcia MD blood pressure, diastolic 84 mm[Hg] Da jaycob Alcon blood pressure, systolic 134 mm[Hg] Dac ia Alcon oxygen saturation, oximetry 97 % Analy Alcon respiratory rate E&M 16 /min Analy V oss pulse rate 76 /min Analy Alcon weight E&M 201 [lb_av] Analy Alcon height E&M 67 [in_i] Analy Alcon Body Mass Index (Ratio) 31.29 kg/m2 Karen Garcia MD blood pressure, diastolic 88 mm[Hg] Bonnie You blood pressure, systolic 138 mm[Hg] Inocencia You oxygen saturation, oximetry 96 % Babs You respiratory rate E&M 18 /min Roman You pulse rate 96 /min Babs luna weight E&M 199.8 [lb_av] Babs pacheco height E&M 67 [in_i] Babs luna blood pressure, diastolic 80 mm[Hg] Bonnie You blood pressure, systolic 126 mm[Hg] Inocencia You pulse rate 82 /min Babs luna oxygen saturation, oximetry 96 % Babs You respiratory rate E&M 16 /min Roman You Body Mass Index (Ratio) 31.32 kg/m2 Arlene You weight E&M 200 [lb_av] Babs luna Body Mass Index (Ratio) 30.69 kg/m2 Lavern cardenas Martinez blood pressure, diastolic 90 mm[Hg] Me marmolejo Martinez blood pressure, systolic 147 mm[Hg] Mary Jane cunha Martinez pulse rate 76 /min Barbara Martinez oxygen saturation, oximetry 98 % Barbara Martinez respiratory rate E&M 14 /min Barbara Martinez weight E&M 196 [lb_av] Barbara Martinez blood pressure, diastolic 84 mm[Hg] Sang Hedrick blood pressure, systolic 137 mm[Hg] Geri Hedrick Body Mass Index (Ratio) 30.60 kg/m2 Krishna Hedrick pulse rate 74 /min Deyanira Hedrick oxygen saturation, oximetry 98 % Deyanira Hedrick respiratory rate E&M 17 /min Deyanira Hedrick weight E&M 195.4 [lb_av] Deyanira Floridalma orthostatic blood pr essure, sitting, left arm, diastolic 82 Latoya Elilott orthostatic blood pr essure, sitting, left arm, systolic 118 Latoya Elliott orthostatic blood pr essure, sitting, right arm, diastolic 82 Latoya Elliott orthostatic blood pr essure, sitting, right arm, systolic 120 Latoya Elliott height E&M 67 [in_i] Latoya [facility] height in centimeters E&M 170.18 cm An [facility] Body Mass Index (Ratio) 30.69 kg/m2 Keke romelia Sainz blood pressure, diastolic 98 mm[Hg] Allan oconnell Sainz blood pressure, systolic 140 mm[Hg] Eliza [facility] pulse rate 93 /min Lupe [place] oxygen saturation, oximetry 98 % [facility] respiratory rate E&M 16 /min [facility] weight E&M 196 [lb_av] Lupe Sainz Body Mass Index (Ratio) 30.49 kg/m2 Kody Garcia blood pressure, diastolic 81 mm[Hg] Hendrix blood pressure, systolic 132 mm[Hg] Jorge Garcia pulse rate 82 /min Ruiz Garcia oxygen saturation, oximetry 98 % Ruiz Garcia respiratory rate E&M 16 /min Ruiz Garcia weight E&M 194 [lb_av] Ruiz Garcia height E&M 67 [in_i] Ruiz Garcia blood pressure, diastolic 80 mm[Hg] Hendrix blood pressure, systolic 130 mm[Hg] Jorge Garcia pulse rate 72 /min Ruiz Garcia oxygen saturation, oximetry 97 % Ruiz Garcia respiratory rate E&M 16 /min Ruiz Garcia weight E&M 194 [lb_av] Ruiz Garcia blood pressure, diastolic, left arm 80 mm [Hg] Nik Barreto RN blood pressure, systolic, left arm 136 mm [Hg] Nik Barreto RN blood pressure, diastolic, right arm 88 m m[Hg] Nik Barreto RN blood pressure, systolic, right arm 140 m m[Hg] Nik Barreto RN blood pressure, diastolic 80 mm[Hg] Abdon Barreto RN blood pressure, systolic 136 mm[Hg] Nik Barreto RN pulse rate 93 /min Nik Barreto RN oxygen saturation, oximetry 95 % Nik Barreto RN respiratory rate E&M 14 /min Nik khalil RN weight E&M 189 [lb_av] Nik Barreto RN blood pressure, diastolic 83 mm[Hg] Aylssa seph [place] blood pressure, systolic 132 mm[Hg] Jt eph [place] pulse rate 70 /min Tiago [place] oxygen saturation, oximetry 100 % Tiago [place] respiratory rate E&M 16 /min Tiago [place] weight E&M 187 [lb_av] Tiago [place] blood pressure, diastolic 83 mm[Hg] Dusty Hopper blood pressure, systolic 134 mm[Hg] Franco Hopper pulse rate 78 /min Alisson Hopper oxygen saturation, oximetry 98 % Alisson Hopper respiratory rate E&M 16 /min Neptali Hopper weight E&M 182 [lb_av] Alisson Hopper blood pressure, diastolic 97 mm[Hg] Abdon aBrreto RN blood pressure, systolic 161 mm[Hg] Nik Barreto RN pulse rate 81 /min Nik Barreto RN oxygen saturation, oximetry 100 % Nik Barreto [place] respiratory rate E&M 16 /min Nik Alex uvaldojeannette RN weight E&M 180 [lb_av] Nik Wagnerjeannette TRAN blood pressure, diastolic 82 mm[Hg] Abdon Wagnerjeannette TRAN blood pressure, systolic 139 mm[Hg] Nik Wagnerjeannette TRAN pulse rate 78 /min Nik Wagnerjeannette TRAN oxygen saturation, oximetry 100 % Nik Wagnerjeannette TRAN respiratory rate E&M 16 /min Nik Alex uvaldojeannette RN weight E&M 179 [lb_av] Nik Barreto RN ALLERGIES Allergy Name Onset Date Reaction Criticality Status IVP DYE vomitting High Criticality active VICODIN hives hives High Criticality active RESULTS Date Observation Value Provider Reference Range Interpretation Location very low density lipoproteins 61.6 mg/dL [facility] 5.0 - 40.0 High LDL/HDL (low-density lipoprotein/high-den sity lipoprotein) ratio 3.3 RATIO [facility] - lipoprotein, beta, serum, point, quantitative, calculated 123.4 (?) [facility] 0.0 - 100.0 High HDL cholesterol, serum 37.0 mg/dL [facility] 35.0 - 55.0 cholesterol, serum 222.0 mg/dL [facility] 0.0 - 200.0 High triglyceride, serum, fasting 308.0 mg/dL [facility] 0.0 - 150.0 High anion gap, serum 11.2 [facility] - albumin/globulin ratio, serum 1.8 g/dL [facility] 1.1 - 2.5 globulin, serum 2.6 [facility] 2.3 - 3.8 urea nitrogen/creatinine ratio, serum 16.2 [facility] - Estimated Glomerular Filtration Rate (calc) 64.7 (?) [facility] 59.0 - chloride, serum 97.8 mmol/L [facility] 98.0 - 107.0 Low potassium, serum [facility].4 [facility] sodium, serum 137.0 mmol/L [facility] 136.0 - 145.0 creatinine, serum 1.3 mg/dL [facility] 0.7 - 1.2 High carbon dioxide, venous blood 28.0 mmol/L [facility] 22.0 - 29.0 albumin, serum 4.6 g/dL [facility] 3.5 - 5.2 calcium, serum 9.4 mg/dL [facility] 8.6 - 10.2 aspartate aminotransferase (SGOT), serum 15.0 1/L [facility] 0.0 - 40.0 alkaline phosphatase, serum 61.0 1/L [facility] 40.[facility] - 130.0 alanine aminotransferase (SGPT), serum 14.0 1/L [facility] 0.0 - 41.0 protein, total, serum 7.2 g/[facility] 6.6 - 8.7 bilirubin, serum, total 0.4 mg/dL [facility] 0.0 - 1.2 urea nitrogen, blood 21.0 mg/dL [facility] 6.0 - 20.0 High blood glucose, random 103.0 mg/dL [facility] 74.0 - 99.0 High red blood cell distribution width, size density 39.7 fL [facility] - immature granulocytes, percentage of total cells, blood 0.3 % [facility] - nucleated red blood cells as percent of blood leukocytes 0.0 % [facility] - red blood cell (erythrocyte) count, per high power field 0.0 10*3/UL [facility] - eosinophils as percent of blood leukocytes 2.0 % [facility] - neutrophils as percent of blood leukocytes 63.1 % [facility] - Absolute Neutrophils 4.2 CELLS/UL [facility] 1.5 - 7.8 basophils as percent of blood leukocytes 0.5 % [facility] - Absolute Basophils 0.0 CELLS/UL [facility] 0.0 - 0.2 monocytes as percent of blood leukocytes 6.4 % [facility] - Absolute Monocytes 0.4 CELLS/UL [facility] 0.2 - 1.0 lymphocytes as percent of blood leukocytes 27.7 % [facility] - Absolute Lymphocytes 1.8 CELLS/UL [facility] 0.9 - 3.9 mean platelet volume 12.0 (?) [facility] - platelet count 242.0 THOUSAND/ UL [facility] 100.0 - 400.0 mean corpuscular hemoglobin concentration, RBC 34.0 G/DL [facility] 31.0 - 38.0 mean corpuscular hemoglobin, RBC 31.7 pg [facility] 25.0 - 35.0 mean corpuscular volume, RBC 93.2 fL [facility] 75.0 - 100.0 hematocrit, blood 48.0 % [facility] 35.0 - 55.0 hemoglobin, blood 16.3 g/dL [facility] 11.5 - 16.5 erythrocyte count, whole blood 5.2 MILLION/U L [facility] 3.5 - 5.5 B-type natriuretic peptide 5 pg/mL Natalia Henning RN platelet count 204 10*3/uL Natalia Henning RN hematocrit, blood 46.7 % Natalia Henning RN hemoglobin, blood 15.8 g/dL Natalia Henning RN leukocyte count, blood 8.4 10*3/mm3 Natalia Henning RN HISTORY OF MEDICATION USE Medication Status Instructions Dates Provider Indications Com ments Norvasc 10 mg tablet active 1 tablet by mouth once a day Judith Hoyso MD SOCIAL HISTORY Date Observation Value Provider drug use no Judith salazar MD alcohol use, average drinks per day 2 /d Judith Hoyos MD alcohol use, type beer/occasiona l shot of vodka Judith Hoyos MD alcohol use yes Judith salazar MD passive cigarette sm roger exposure no Judith Hoyos MD smoking, year quit 2012 Judith Hoyos MD number of years as a smoker 10 years or m ore Judith Hoyos MD smoking, date started 1994 Paul Hoyos MD smoking history, tot al pack/year 6 Judith Hoyos MD smoking history, tot al pack/day 6 Judith Hoyos MD cigarette use yes Judith duggan MD smoking status Former smoker Judith johnson MD number of grandchildren Judith Hoyos MD drug use no Judith salazar MD alcohol use, average drinks per day 2 /d Judith Hoyos MD alcohol use, type beer/occasiona l shot of vodka Judith Hoyos MD alcohol use yes Judith salazar MD passive cigarette sm roger exposure no Judith Hoyos MD smoking, year quit 2012 Judith Hoyos MD number of years as a smoker 10 years or m ore Judith Hoyos MD smoking, date started 1994 Paul Hoyos MD smoking history, tot al pack/year 6 Judith Hoyos MD smoking history, tot al pack/day 6 Judith Hoyos MD cigarette use yes Judith duggan MD smoking status Former smoker Judith johnson MD smoking status Former smoker Rachele holbrook smoking status Former smoker Fermin Garcia MD social history E&M Marital Statu s: Single L carlos with family/friends E thnicity: Warren gan is a former smoker. R egular Exercise - no Smoking History: Warren gan is a former smoker. Fermin Garcia MD social history reviewed E&M revi ewed - no changes required Fermin Garcia MD physical exercise, f requency, days per week no [facility] alcohol counseling no [facility] s In the past 3 months , have you been waking up wanting to use drugs? (CAGE substance use question #4) N [facility] In the past 3 months , have you felt guilty or bad about using drugs? (CAGE substance use question #3) N [facility] In the past 3 months , has anyone annoyed you by telling you to cut down or stop using drugs? (CAGE substance use question #2) N [facility] In the past 3 months , have you felt you should cut down or stop using drugs?(CAGE substance use question #1) N [facility] alcohol use, average drinks per day 2 /d Fermin Garcia MD alcohol use, type beer/occasiona l shot of vodka Fermin Garcia MD alcohol use yes [facility] caffeine use, averag e drinks per day no [facility] drug use no [facility] passive cigarette sm roger exposure no [facility] smoking, year quit 2012 [facility] s number of years as a smoker 10 years or m ore [facility] smoking, date started 1994 [facility] smoking history, tot al pack/year 6 [facility] smoking history, tot al pack/day 6 [facility] cigarette use yes Analy Alcon number of grandchildren Fermin Garcia MD U choco Garcia MD social history reviewed E&M revi ewed - no changes required Fermin Garcai MD physical exercise, f requency, days per week no Babs You alcohol counseling no Babs You In the past 3 months , have you been waking up wanting to use drugs? (CAGE substance use question #4) N Babs You In the past 3 months , have you felt guilty or bad about using drugs? (CAGE substance use question #3) N Babs You In the past 3 months , has anyone annoyed you by telling you to cut down or stop using drugs? (CAGE substance use question #2) N Babs You In the past 3 months , have you felt you should cut down or stop using drugs?(CAGE substance use question #1) N Babs You alcohol use, average drinks per day on weekend Babs You alcohol use, type beer Babs You alcohol use yes Babs luna caffeine use, averag e drinks per day no Babs You drug use no Babs luna passive cigarette sm roger exposure no Babs You smoking, year quit 2012 Babs You number of years as a smoker 10 years or m ore Babs You smoking, date started 1994 Srini neff You smoking history, tot al pack/year 6 Babs You smoking history, tot al pack/day 6 Babs You cigarette use yes Babs prestonon smoking status Former smoker Babs Holm dawn social history reviewed E&M i ewed - no changes required Fermin Gacria MD physical exercise, f requency, days per week no Babs You alcohol counseling no Babs You In the past 3 months , have you been waking up wanting to use drugs? (CAGE substance use question #4) N Babs You In the past 3 months , have you felt guilty or bad about using drugs? (CAGE substance use question #3) N Babs You In the past 3 months , has anyone annoyed you by telling you to cut down or stop using drugs? (CAGE substance use question #2) N Babs Yuo In the past 3 months , have you felt you should cut down or stop using drugs?(CAGE substance use question #1) N Babs You alcohol use, average drinks per day on weekend Babs You alcohol use, type beer Babs You alcohol use yes Babs luna caffeine use, averag e drinks per day no Babs You drug use no Babs luna passive cigarette sm roger exposure no Babs You smoking, year quit 2012 Babs You number of years as a smoker 10 years or m ore Babs You [facility], [facility] smoking [facility], tot al pack/year 6 Babs You smoking history, tot al pack/day 6 Babs You cigarette use yes Babs pacheco smoking status Former smoker Babs Irwin social history E&M Marital Statu s: Single L carlos with family/friends E thnicity: P elvia is a former smoker. R egular Exercise - no Smoking History: P elvia is a former smoker. P atstaci has been counseled to quit. Fermin Gacria MD social history reviewed E&M revi ewed - no changes required Fermin Garcia MD physical exercise, f requency, days per week no Barbara Martinez alcohol counseling no Barbara Nieto In the past 3 months , have you been waking up wanting to use drugs? (CAGE substance use question #4) N Barbara Martinez In the past 3 months , have you felt guilty or bad about using drugs? (CAGE substance use question #3) N Barbara [facility] In the past 3 months , has anyone annoyed you by telling you to cut down or stop using drugs? (CAGE substance use question #2) N Barbara [facility] In the past 3 months , have you felt you should cut down or stop using drugs?(CAGE substance use question #1) N Barbara [facility] alcohol use, average drinks per day on weekend Barbara [facility] alcohol use, type beer Barbara Olga alcohol use yes [facility] caffeine use, averag e drinks per day no Barbara [facility] drug use no [facility] passive cigarette sm roger exposure no [facility] smoking/tobacco cess ation, patient education and counseling yes Barbara [facility] smoking, year quit 2012 Barbara Mercado Gerson number of years as a smoker 10 years or m ore Barbara [facility] smoking, date started 1994 Candice salazar Martinez smoking history, tot al pack/year 6 Barbara [facility] smoking history, tot al pack/day 6 Barbara [facility] cigarette use yes [facility] smoking status Former smoker Barbara Mark manley alcohol use yes Fermin Garcia MD physical exercise, f requency, days per week no Fermin Garcia MD alcohol counseling no Fermin mayes MD In the past 3 months , have you been waking up wanting to use drugs? (CAGE substance use question #4) N Fermin Garcia MD In the past 3 months , have you felt guilty or bad about using drugs? (CAGE substance use question #3) N Fermin Garcia MD In the past 3 months , has anyone annoyed you by telling you to cut down or stop using drugs? (CAGE substance use question #2) N Fermin Garcia MD In the past 3 months , have you felt you should cut down or stop using drugs?(CAGE substance use question #1) N Fermin Garcia MD alcohol use, average drinks per day on weekend Fermin Garcia MD alcohol use, type beer Fermin العلي MD caffeine use, averag e drinks per day no Fermin Garcia MD drug use no Fermin Garcia MD passive cigarette sm roger exposure no Fermin Garcia MD smoking/tobacco cess ation, patient education and counseling yes Fermin Garcia MD smoking, year quit 2012 Fermin mayes MD number of years as a smoker 10 years or m ore Fermin Garcia MD smoking, date started 1994 Fermin Garcia MD smoking history, tot al pack/year 6 Fermin Garcia MD smoking history, tot al pack/day 6 Fermin Garcia MD cigarette use yes Fermin Crook smoking status Former smoker Fermin Garcia MD social history reviewed E&M revi ewed - no changes required Fermin Garcia MD smoking/tobacco cess ation, patient education and counseling yes Fermin Garcia MD social history E&M Marital Statu s: Single L carlos with family/friends E thnicity: P atient is a former smoker. Smoking History: P atient is a former smoker. Fermin Garcia MD social history reviewed E&M revi ewed - no changes required Fermin Garcia MD smoking, year quit 2012 Lupe metzger smoking, date started 1994 Lupe Sainz smoking history, tot al pack/day 6 Lupe Sainz cigarette use yes Lupe Sainz smoking status Former smoker Fermin Garcia MD social history reviewed E&M reviewed Nik Barreto RN drug use no Ruiz Garcia passive cigarette sm roger exposure no Ruiz Garcia alcohol counseling no Ruiz [place] In the past 3 months , have you been waking up wanting to use drugs? (CAGE substance use question #4) N Ruiz Garcia In the past 3 months , have you felt guilty or bad about using drugs? (CAGE substance use question #3) N Ruiz Garcia In the past 3 months , has anyone annoyed you by telling you to cut down or stop using drugs? (CAGE substance use question #2) Rosemarie Garcia In the past 3 months , have you felt you should cut down or stop using drugs?(CAGE substance use question #1) Rosemarie Garcia alcohol use, type beer Ruiz tom smoking, year quit 2012 [place] smoking status smoker - current status unknown Fermin Garcia MD social history reviewed E&M reviewed Nik Barreto RN social history reviewed E&M reviewed Nik Barreto RN cigarette use 2 Fermin Crook alcohol use, average drinks per day on weekend Fermin Garcia MD social history reviewed E&M reviewed Fermin Garcia MD social history reviewed E&M reviewed Fermin Garcia MD smoking/tobacco cess ation, patient education and counseling yes Nik Barreto RN smoking status Smoker Nik Barreto RN social history reviewed E&M reviewed Nik Barreto RN drug use none Fermin Garcia MD alcohol use, average drinks per day 4+ drinks per day.. currently has not drank since his discharge Fermin Garcia MD smoking history, tot al pack/year 6 Fermin Garcia MD cigarette use 10 Fermin Crook social history E&M Marital Statu s: Single L carlos with family/friends E thnicity: Nik Barreto RN social history reviewed E&M reviewed Nik Barreto RN physical exercise, f requency, days per week no [facility] caffeine use, averag e drinks per day no [facility] alcohol use, average drinks per day 4+ drinks per day [facility] number of years as a smoker 10 years or m ore [facility] smoking status Quit [facility] FUNCTIONAL STATUS Date Observation Value Provider periodic limb movement index absent (0) Shefali Hillman MD MENTAL STATUS Date Observation Value Provider assessment of judgme nt and insight E&M Alert and oriented to time, place and person. Mood and affect are normal. Nik Barreto RN assessment of judgme nt and insight E&M Alert and oriented to time, place and person. Mood and affect are normal. Nik Barreto RN assessment of judgme nt and insight E&M Alert and oriented to time, place and person. Mood and affect are normal. Nik Barreto RN assessment of judgme nt and insight E&M Alert and oriented to time, place and person. Mood and affect are normal. Fermin Garcia MD assessment of judgme nt and insight E&M Alert and oriented to time, place and person. Mood and affect are normal. Fermin Garcia MD assessment of judgme nt and insight E&M Alert and oriented to time, place and person. Mood and affect are normal. Nik Barreto RN assessment of judgme nt and insight E&M Alert and oriented to time, place and person. Mood and affect are normal. Nik Barreto RN FAMILY HISTORY Family Member Condition Father Family History of Di abetes: INSURANCE PROVIDERS Payer name Policy type / Coverage type [place] [employer] ID [facility] Other [id number] ADVANCE DIRECTIVES Name Date DISCUSSED - NO DECISION MADE TREATMENT PLAN Date Name Performer Cardiology:Sinus Rhy thm with rare Ventricular ectopics and rare S upraventricular ectopics. The average heart rate was 86bpm w ith a maximum rate of 151bpm and a minimum rate of 54bpm. V E's were documented as isolated beats. SVE's were d ocumented as couplets and isolated beats. Judith Hoyos MD Cardiology:Give RPM D iscussion of benefits for remote patient monitoring took place. Patient gives consent for remote monitoring of physiologic parameters including, but not limited to, weight, blood pressure, pulse oximetry, respiratory flow rate. His updated medication list for this problem includes: Norvasc 10 Mg Tablet (Amlodipine) ..... 1 tablet by mouth once a day Judith Hoyos MD Cardiology Judith Hoyos MD Cardiology:ETT [place] ry and Interpretation 11/04/23 1 . Normal exercise capacity 2. Normal hemodynamic response to exercise 3. No diagnostic ST or T changes 4. No significant arrhythmias 5. There is no evidence for exercise-induced myocardial ischemia ECHO 11/18/23 C ONCLUSIONS: 1 . Normal left ventricular systolic function. Normal left ventricular size. Normal left ventricular wall thickness. Normal left v entricular diastolic function. E/E': 6.3. Left ventricular ejection fraction is measured at 65 %. 2 . Normal right ventricular size. Normal right ventricular systolic function. 3 . No significant valvular abnormalities. C artoid 11/18/23 C ONCLUSIONS: 1 . Normal carotid duplex examination. 2 . Vertebral flow is antegrade bilaterally Judith Hoyos MD Cardiology:Check echo, telemonit or, routine stress Judith Hoyos MD Cardiology: A typical pain. I have recommended no further testing. I have discussed the type of chest pain that I would be more concerned about. He is ok to start working out. Judith Hoyos MD Cardiology:BP mildly elevated, on norvasc 10mg H is updated medication list for this problem includes: Norvasc 10 Mg Tablet (Amlodipine) ..... 1 tablet by mouth once a day BP today: 146/89 P rior BP: 140/90 (08/18/2018) Prior 10 Yr Risk Heart Disease: Not enough information (08/18/2018) Labs Reviewed: C reat: 1.3 (10/20/2016) C hol: 222.0 (10/20/2016) HDL: 37.0 (10/20/2016) LDL: 123.4 (?) (10/20/2016) T.0 (10/20/2016) Judith Hoyos MD Cardiology:Unclear i ssues concerning syncopal episode. Patient was at movie, could have been falling asleep. Patient was seen at [facility], w/u was negative for cardiopulmonary, cardiac enzymes negative. No palpitations, no prior siezure disorder c heck telemonitor and check echo Judith Hoyos MD Cardiology Judith Hoyos MD Cardiology follow up : B P today: 134/84 P rior BP: 138/88 (10/19/2016) His updated medication list for this problem includes: Norvasc 10 Mg Oral Tablet (Amlodipine besylate) ..... One tab. daily Fermin Garcia MD Cardiology: B P today: 138/88 P rior BP: 126/80 (03/29/2016) Fermin Garcia MD Cardiology:Atypical pain. I have recommended no further testing. I have discussed the type of chest pain that I would be more concerned about. He is ok to start working out. Fermin Garcia MD Cardiology:126/80 Fermin Crook Cardiology Fermin Garcia MD follow up:BP 147/90 His updated medication list for this problem includes: Norvasc 10 Mg Tabs (Amlodipine besylate) ..... One tab. daily Fermin Garcia MD F/U:BP 137/84 His updated medication list for this problem includes: Norvasc 10 Mg Tabs (Amlodipine besylate) ..... One tab. daily Fermin Garcia MD follow up: H is updated medication list for this problem includes: Norvasc 10 Mg Tabs (Amlodipine besylate) ..... One tab. daily Orders: E KG (CPT-58830) Fermin Garcia MD follow up Fermin Garcia MD follow up Fermin Garcia MD follow up: H is updated medication list for this problem includes: Norvasc 10 Mg Tabs (Amlodipine besylate) ..... One tab. daily BP today: 132/81 P rior BP: 130/80 (12/07/2011) Fermin Garcia MD follow up: H is updated medication list for this problem includes: Norvasc 10 Mg Tabs (Amlodipine besylate) ..... One tab. daily BP today: 132/81 Prior BP: 130/80 (12/07/2011) N uclear Stress Findings: 1. Normal See protocol exercise tolerance test. 2 . Normal left ventricular size and function with a calculated ejection fraction of 59%. 3 . Myocardial scintigraphy is normal without evidence for previous myocardial infarction or reversible ischemia. - GC (12/05/2011) H gb: 15.8 (11/07/2008) HCT: 46.7 (11/07/2008) WBC: 8.4 (11/07/2008) Fermin Garcia MD follow up:The Patien t was reencouraged to stop smoking. Fermin Garcia MD follow up: H is updated medication list for this problem includes: Norvasc 10 Mg Tabs (Amlodipine besylate) ..... One tab. daily BP today: 130/80 Prior BP: 136/80 (11/28/2011) N uclear Stress Findings: 1. Normal See protocol exercise tolerance test. 2 . Normal left ventricular size and function with a calculated ejection fraction of 59%. 3 . Myocardial scintigraphy is normal without evidence for previous myocardial infarction or reversible ischemia. - GC (12/05/2011) H gb: 15.8 (11/07/2008) HCT: 46.7 (11/07/2008) WBC: 8.4 (11/07/2008) E chocardiogram: Normal left ventricular systolic function. Normal left ventricular size. Normal left ventricular wall thickness. Left ventricular ejection fraction is estimated at 60%. Normal appearing tricuspid valve leaflets. There is trace physiologic tricuspid valve regurgitation. Normal aortic root size. Normal pericardium with no pericardial or pleural effusion. - GC (06/22/2011) Fermin Garcia MD follow up: H is updated medication list for this problem includes: Norvasc 10 Mg Tabs (Amlodipine besylate) ..... One tab. daily BP today: 130/80 P rior BP: 136/80 (11/28/2011) Fermin Garcia MD Yearly follow-up:132 /83 H is updated medication list for this problem includes: Norvasc 10 Mg Tabs (Amlodipine besylate) ..... One tab. daily Orders: E KG (CPT-32907) Fermin Garcia MD Yearly follow-up:The Patient was reencouraged to stop smoking. Fermin Garcia MD f/u: H is updated medication list for this problem includes: Norvasc 10 Mg Tabs (Amlodipine besylate) ..... One tab. daily Fermin Garcia MD f/u: H is updated medication list for this problem includes: Norvasc 10 Mg Tabs (Amlodipine besylate) ..... One tab. daily Fermin Garcia MD f/u:The Patient was reencouraged to stop smoking. O rders: T OBACCO USE CESSATION INTERMEDIATE 3-10 MINUTES (CPT-24692) Fermin Garcia MD routine-echo prior:T he Patient was reencouraged to stop smoking. Fermin Garcia MD routine-echo prior: H is updated medication list for this problem includes: Norvasc 10 Mg Tabs (Amlodipine besylate) ..... One tab. daily BP today: 161/97 Prior BP: 139/82 (12/09/2008) H gb: 15.8 (11/07/2008) HCT: 46.7 (11/07/2008) WBC: 8.4 (11/07/2008) Fermin Garcia MD routine-echo prior: H is updated medication list for this problem includes: Norvasc 10 Mg Tabs (Amlodipine besylate) ..... One tab. daily BP today: 161/97 P rior BP: 139/82 (12/09/2008) e cho was ok with mild lvh. he is c/o sexual dysfunction with the lisinopril so will switch him to norvasc 10 mg po once daily. Fermin Garcia MD chest pain: H is updated medication list for this problem includes: Lisinopril 10 Mg Tabs (Lisinopril) ..... One tab. daily d oing well on lisinopril Fermin Garcia MD chest pain: H is updated medication list for this problem includes: Lisinopril 10 Mg Tabs (Lisinopril) ..... One tab. daily BP today: 139/82 Prior BP: / () H gb: 15.8 (11/07/2008) HCT: 46.7 (11/07/2008) WBC: 8.4 (11/07/2008) Orders: E KG (CPT-23812) h as a neg stress test and is doing much better. bp is well controlled Fermin Garcia MD Date Name LIPID PANEL RPM (remote patient monitoring) Carotid Duplex Bilat eral MAGNESIUM LIPID PANEL COMPREHENSIVE METABO LIC PANEL, W/EGFR Monitor - Telemetry (Mobile Cardiac) Stress Routine Complete Echo LIPID PANEL CT, Coronary Calcium Score Complete Echo STR - Routine Complete Echo CBC (INCLUDES DIFF/P LT) COMPREHENSIVE METABO LIC PANEL W/EGFR LIPID PANEL Complete Echo Complete Echo STR - Nuclear Complete Echo Complete Echo Stress Test - Nuclea r Complete Echo Complete Echo HISTORY OF PROCEDURES Procedure Date Procedure Name Provider Procedure Notes S tatus EKG Judith Hoyos MD completed Stress EKG Shefali Hillman MD completed EKG Fermin Garcia MD completed SNOMED-CT: 83999670 Physical Exam, Performed: Pulse Exam of Foot Fermin Garcia MD completed EKG Fermni Garcia MD completed SNOMED-CT: 209970257 [id number] Current Medications Documented Fermin Garcia MD completed SNOMED-CT: 53096192 Physical Exam, Performed: Pulse Exam of Foot Fermin Garcia MD completed EKG Fermin Garcia MD completed SNOMED-CT: 055579081 [id number] Current Medications Documented Fermin Garcia MD completed EKG Fermin Garcia MD completed EKG Fermin Garcia MD completed EKG Fermin Garcia MD completed EKG Fermin Garcia MD completed EKG Fermin Garcia MD completed
--- OUTSIDE RECORDS SUMMARY | 2024-12-14 12:47 | XMS_ITS | Referral Summary ---
Author Organization [facility] [place] [address] Address [address] [place] [address] Care Team Providers Care Radio Time Salesperson Name Role Phone Case Blas MD Primary Care Provider +1- [phone] Allergies Active Allergy Reactions Criticality Noted Date [...] on file Legal Sex Male 11:35 PM COFFEE SUPERVISOR Gender Identity Not on file Sexual Orientation Not on file Last Filed Vital Signs Vital Sign Reading Time Taken Comments Blood Pressure 133/82 09/01/2023 8:30 PM COFFEE SUPERVISOR Pulse 80 09/01/2023 8:30 PM COFFEE SUPERVISOR Temperature 37 C (98.6 F) 09/01/2023 5:08 PM COFFEE SUPERVISOR Respiratory Rate 24 09/01/2023 8:30 PM COFFEE SUPERVISOR Oxygen Saturation 100% 09/01/2023 8:30 PM COFFEE SUPERVISOR Inhaled Oxygen Concentration - - Weight 87.5 kg (192 lb 14.4 oz) 09/01/2023 5:08 PM COFFEE SUPERVISOR Height 170.2 cm (5' 7 ) 09/01/2023 5:08 PM COFFEE SUPERVISOR Body Mass Index 30.21 09/01/2023 5:08 PM COFFEE SUPERVISOR Plan of Treatment Not on file Insurance [facility] CHO[facility] PLUS [facility] H[facility]PPO Address: [place] [address] Care Teams Radio Time Salesperson Relationship Specialty Start Date End Date Case Blas MD PCP - General Internal Medicine 02/22/20
--- NOTE | 2024-12-14 13:20 | P.PNAN_ITS ---
Anes - Initial Pre Proc Eval Procedure: Operation Date: 12/14/24 12:30 Proposed Procedures p Screening Colonoscopy - Hussein Dang MD Date/Time: 12/14/24 13:20 Surgeon: Hussein Dang MD Pre Op Diagnosis: Neoplasm Screening Patient Data Age: 48 Gender: M Height: 1.7 m Weight: 86.1 kg Last Vital Signs Temp 36.6 C 12/14/24 11:14 Pulse 91 12/14/24 11:14 Resp 16 12/14/24 11:14 BP 120/83 12/14/24 11:14 Pulse Ox 100 12/14/24 11:14 O2 Del Method Room Air 12/14/24 11:14 Allergies Allergy/AdvReac Type Severity Reaction Status Date / Time hydrocodone (From Vicodin) Allergy Hives Verified 12/14/24 11:13 Iodinated Contrast Media AdvReac Nausea and Verified 12/14/24 11:13 Vomiting Home Medications ?Medication ?Instructions ?Recorded ?Confirmed ?Type amlodipine 10 mg tablet 10 mg PO DAILY 07/28/19 12/14/24 History atorvastatin 20 mg tablet 20 mg PO HS 11/24/24 12/14/24 History Patient hx anesthesia problems: none Family hx anesthesia problems: none Results Review: All pre-operative results and documents have been reviewed as part of the pre- operative evaluation. [facility] Past Medical History Medical History Atypical chest pain Boil of buttock with surgery Hyperlipidemia Hypertension Surgical History Surgical History History of orthopedic surgery lt fingers Family History Family History Father Hypertension Diabetes mellitus Social History Social History Smoking packs per day: 0.25 Smoking cigarettes per day: 5.0 Years smoked: 10 Smoking pack-years: 2.50 Smoking status: Former smoker Tobacco type: cigarettes Additional smoking assessment comments: Quit 2018 Alcohol intake: former Alcohol use details: Quit 09-09-2024 Substance use: former Substance use type: marijuana Last use: 07/25/19 Living arrangements: with family Gender identity (if verbalized by the patient): Male Spiritual care concerns: No Agree to blood products: No Anes - Eval Final PreProcedure Day of Procedure 12/14/24 13:20 Patient weight: overweight Heart: regular rate and rhythm Lungs: clear to auscultation Airway: Mallampati scale class II Neurological: alert and oriented Last oral intake: >/= 8 hours ASA classification: II Emergent: no Anesthetic plan: proceed Anesthesia type and monitoring: general GIVS and standard monitoring Results Review: All pre-operative results and documents have been reviewed as part of the pre- operative evaluation. Informed Consent: The patient's anesthetic plan and its attendant risks and benefits were discussed with the patient/family/POA. Questions were solicited and answers provided to the satisfaction of the patient/family/POA.
[2024-12-14 13:46] VITALS: BP 95/58; PULSE 88; RESP 16; O2SAT 98
[2024-12-14 13:56] VITALS: BP 98/69; PULSE 74; RESP 16; O2SAT 100
--- NOTE | 2024-12-14 13:59 | WPDANESPN ---
Anes - Prog Note Post-Op Date/Time: 12/14/24 13:59 Cardiovascular status: normal Respiratory status: normal Airway patency: baseline Mental status: baseline Post-Op hydration status: normal Vital Signs: Last Vital Signs Temp 36.6 C 12/14/24 11:14 Pulse 88 12/14/24 13:46 Resp 16 12/14/24 13:46 BP 95/58 L 12/14/24 13:46 Pulse Ox 98 12/14/24 13:46 O2 Del Method Room Air 12/14/24 13:46 Pain Score (VAS): 0 I/O: Intake & Output 12/13/24 12/14/24 12/14/24 23:59 07:59 15:59 Intake Total 250 Balance 250 Patient Feedback: Patient satisfied with anesthetic care.
[2024-12-14 14:06] VITALS: BP 111/83; PULSE 65; RESP 16; O2SAT 100
== END 2024-12-14 14:19 | disposition home or self-care (01) ==
PROVIDERS: PCP Internal Medicine; Visit Provider Internal Medicine Gastroenterology
PROC: 0DJD8ZZ Inspection of Lower Intestinal Tract, Via Natural or Artificial Opening Endoscopic (ICD-10-PCS; CPT 45378; principal; 2024-12-14 12:30)
DX: Z12.11 Encounter for screening for malignant neoplasm of colon (principal); K63.5 Polyp of colon; Z80.0 Family history of malignant neoplasm of digestive organs
CPT/HCPCS: 45385

== ENCOUNTER 2024-12-14 14:14 | Outpatient (NON) | payer OTHER, SELFPAY ==
--- OUTSIDE RECORDS SUMMARY | 2024-12-15 15:52 | XMS_ITS | Referral Summary ---
Author Organization [facility] [address] Address [address] [place] [address] Care Team Providers Care Flatbed Truck Driver Name Role Phone Case Blas MD Primary Care Provider +1- [phone] Allergies Active Allergy Reactions Criticality Noted Date [...] on file Legal Sex Male 11:35 PM GUEST ASSOCIATE Gender Identity Not on file Sexual Orientation Not on file Last Filed Vital Signs Vital Sign Reading Time Taken Comments Blood Pressure 133/82 09/01/2023 8:30 PM GUEST ASSOCIATE Pulse 80 09/01/2023 8:30 PM GUEST ASSOCIATE Temperature 37 C (98.6 F) 09/01/2023 5:08 PM GUEST ASSOCIATE Respiratory Rate 24 09/01/2023 8:30 PM GUEST ASSOCIATE Oxygen Saturation 100% 09/01/2023 8:30 PM GUEST ASSOCIATE Inhaled Oxygen Concentration - - Weight 87.5 kg (192 lb 14.4 oz) 09/01/2023 5:08 PM GUEST ASSOCIATE Height 170.2 cm (5' 7 ) 09/01/2023 5:08 PM GUEST ASSOCIATE Body Mass Index 30.21 09/01/2023 5:08 PM GUEST ASSOCIATE Plan of Treatment Not on file Insurance [facility] CHOICE PLUS Care Teams Flatbed Truck Driver Relationship Specialty Start Date End Date Case Blas MD PCP - General Internal Medicine 02/22/20
--- OUTSIDE RECORDS SUMMARY | 2024-12-15 15:52 | XMS_ITS | Clinical Summary ---
Author Organization [facility] [address] Address [address] [place] [address] Care Team Providers Care Plastic Machine Operator Name Role Phone Case Blas MD Primary Care Provider +1- [phone] Allergies Active Allergy Reactions Criticality Noted Date [...] on file Legal Sex Male 11:35 PM HEALTH PROMOTION SPECIALIST Gender Identity Not on file Sexual Orientation Not on file Last Filed Vital Signs Vital Sign Reading Time Taken Comments Blood Pressure 133/82 09/01/2023 8:30 PM HEALTH PROMOTION SPECIALIST Pulse 80 09/01/2023 8:30 PM HEALTH PROMOTION SPECIALIST Temperature 37 C (98.6 F) 09/01/2023 5:08 PM HEALTH PROMOTION SPECIALIST Respiratory Rate 24 09/01/2023 8:30 PM HEALTH PROMOTION SPECIALIST Oxygen Saturation 100% 09/01/2023 8:30 PM HEALTH PROMOTION SPECIALIST Inhaled Oxygen Concentration - - Weight 87.5 kg (192 lb 14.4 oz) 09/01/2023 5:08 PM HEALTH PROMOTION SPECIALIST Height 170.2 cm (5' 7 ) 09/01/2023 5:08 PM HEALTH PROMOTION SPECIALIST Body Mass Index 30.21 09/01/2023 5:08 PM HEALTH PROMOTION SPECIALIST Plan of Treatment Health Maintenance Due Date [...] patient's age to complete this topic Insurance [facility] [place] [address] Care Teams Plastic Machine Operator Relationship Specialty Start Date End Date Case Blas MD PCP - General Internal Medicine 02/22/20
--- OUTSIDE RECORDS SUMMARY | 2024-12-15 15:52 | XMS_ITS | CONTINUITY OF CARE DOCUMENT ---
Author Name monster hook Address Unknown Organization [facility] Address [address] [place] [address] Phone [phone] Care Team Providers Care Automobile Body Customizer Name Role Phone Romain MARIA, Judith Houston Unavailable Case Blas MD Unavailable Case Blas MD Unavailable [phone] PROBLEMS Condition Status Date Provider Notes CHEST [...] In-person encounter Office Visit Judith Hoyos MD [facility] - In-person encounter Office Visit Judith Hoyos MD [facility] Syncope and collapseCardiovascular Condition Screening - In-person encounter Office Visit Fermin Garcia MD [facility] - In-person encounter Office Visit Fermin Garcia MD [facility] - In-person encounter Office Visit Fermin Garcia MD [facility] - In-person encounter Office Visit Fermin Garcia MD [facility] - In-person encounter Office Visit Fermin Garcia MD [facility] - In-person encounter Office Visit Fermin Garcia MD [facility] - In-person encounter Office Visit Fermin Garcia MD [facility] CHEST PAIN-11/18 NUC NL-11/15 RT STRESS NEGHTN- 06/19 ECHO EF 60 - 07/18 ECHO EF 60TOBACCO ABUSE-QUIT - In-person encounter Office Visit Fermin Garcia MD [facility] - In-person encounter Office Visit Jelani Temple MD [facility] - In-person encounter Office Visit Fermin Garcia MD [facility] - In-person encounter Office Visit Fermin Garcia MD [facility] - In-person encounter Office Visit Fermin Garcia MD [facility] TOBACCO ABUSE-QUIT - In-person encounter Office Visit Fermin Garcia MD [facility] HTN- 06/19 ECHO EF 60 - [...] essure, sitting, left arm, diastolic 82 Latoya Elliott orthostatic blood pr essure, sitting, left arm, systolic 118 Latoya Elliott orthostatic blood pr essure, sitting, right arm, diastolic 82 Latoya Elliott orthostatic blood pr essure, sitting, right arm, systolic 120 Latoya Elliott height E&M 67 [in_i] Ltaoya [facility] height in centimeters E&M 170.18 cm An [facility] Body Mass Index (Ratio) 30.69 kg/m2 Keke romelia Sainz blood pressure, diastolic 98 mm[Hg] Allan oconnell Sainz blood pressure, systolic 140 mm[Hg] [facility] pulse rate 93 /min Lupe [place] oxygen saturation, oximetry 98 % [facility] respiratory rate E&M 16 /min [facility] weight E&M 196 [lb_av] Lupe Sainz [...] Barreto RN blood pressure, diastolic 83 mm[Hg] Alyssa seph [place] blood pressure, systolic 132 mm[Hg] [...] Hopper blood pressure, diastolic 97 mm[Hg] Abdon Barreto RN blood pressure, systolic 161 mm[Hg] Nik [...] - 107.0 Low potassium, serum 4.4 [facility]/L [facility] - 5.1 sodium, serum 137.0 mmol/L [facility] 136.0 - 145.0 creatinine, serum 1.3 mg/dL [facility] 0.7 - 1.2 High carbon dioxide, venous blood 28.0 mmol/L [facility] 22.0 - 29.0 albumin, serum 4.6 g/dL [facility] 3.5 - 5.2 calcium, serum 9.4 mg/dL [facility] 8.6 - 10.2 aspartate aminotransferase (SGOT), serum 15.0 1/L [facility] 0.0 - 40.0 alkaline phosphatase, serum 61.0 1/L [facility] 40.0 - 130.0 alanine aminotransferase (SGPT), serum 14.0 1/L [facility] 0.0 - 41.0 protein, total, serum 7.2 g/dL [facility] 6.6 - 8.7 bilirubin, serum, total 0.4 mg/dL [facility] 0.0 - 1.2 urea nitrogen, blood 21.0 mg/dL [facility] 6.0 - 20.0 High blood glucose, random 103.0 mg/dL [facility] 74.0 - 99.0 High red blood cell distribution width, size density 39.7 fL [facility] - immature granulocytes, percentage of total cells, blood 0.3 % [facility] - nucleated red blood cells as percent of blood leukocytes 0.0 % [facility] - red blood cell (erythrocyte) count, per high power field 0.0 10*3/UL [facility] - eosinophils as percent of blood leukocytes 2.0 % [facility] - neutrophils as percent of blood leukocytes 63.1 % [facility] - Absolute Neutrophils 4.2 CELLS/UL [facility] 1.5 - 7.8 basophils as percent of blood leukocytes 0.5 % [facility] - Absolute Basophils 0.0 CELLS/UL [facility] 0.0 [...] mouth once a day Judith Hoyos MD SOCIAL HISTORY Date Observation Value Provider [...] exercise, f requency, days per week no [facility] alcohol counseling no [facility] In the past 3 months , have you been waking up wanting to use drugs? (CAGE substance use question #4) N [facility] In the past 3 months , have you felt guilty or bad about using drugs? (CAGE substance use question #3) N [facility] In the past 3 months , has anyone annoyed you by telling you to cut down or stop using drugs? (CAGE substance use question #2) N [facility] In the past 3 months , have you felt you should cut down or stop using drugs?(CAGE substance use question #1) N [facility] alcohol use, average drinks per day 2 /d Fermin Garcia MD alcohol use, type beer/occasiona l shot of vodka Fermin Garcia MD alcohol use yes [facility] caffeine use, averag e drinks per day no [facility] drug use no [facility] passive cigarette sm roger exposure no [facility] smoking, year quit 2012 [facility] number of years as a smoker 10 years or m ore [facility] smoking, date started 1994 [facility] smoking history, tot al pack/year 6 [facility] smoking history, tot al pack/day 6 [facility] cigarette use yes Analy [employer] number [...] i ewed - no changes required Fermin Garcia [...] ore [facility], tot al pack/year 6 [...] atstaci has been counseled to quit. Fermin Garcia MD social history reviewed E&M [...] (CAGE substance use question #3) N Barbara [facility] In the past 3 months , has anyone annoyed you by telling you to cut down or stop using drugs? (CAGE substance use question #2) N Barbara [facility] In the past 3 months , have you felt you should cut down or stop using drugs?(CAGE substance use question #1) N Barbara [facility] alcohol use, average drinks per day on weekend Barbara [facility] alcohol use, type beer Barbara Olga alcohol use yes [facility] caffeine use, averag e drinks per day no Barbara [facility] drug use no [facility] passive cigarette sm roger exposure no [facility] smoking/tobacco cess ation, patient education and counseling yes Barbara [facility] smoking, year quit 2012 Barbara Mercado [place] number of years as a smoker 10 years or m ore Barbara [facility] smoking, date started 1994 Candice salazar Martinez smoking history, tot al pack/year 6 Barbara [facility] smoking history, tot al pack/day 6 Barbara [facility] cigarette use yes [facility] smoking status Former smoker Barbara Mark [place] [...] a smoker 10 years or m ore [facility] smoking status Quit [facility] FUNCTIONAL STATUS Date Observation Value Provider periodic [...] Payer name Policy type / Coverage type Margie [employer] party ID [facility] Other [id number] ADVANCE DIRECTIVES Name Date DISCUSSED - NO [...] been falling asleep. Patient was [facility] at [facility], w/u was negative for cardiopulmonary, cardiac enzymes [...] ..... One tab. daily Orders: E KG ([id number]) Fermin Garcia MD follow up Fermin Garcia [...] ..... One tab. daily Orders: E KG ([id number]) Fermin Garcia MD Yearly follow-up:The Patient was [...] T OBACCO USE CESSATION INTERMEDIATE 3-10 MINUTES ([id number]) Fermin Garcia MD routine-echo prior:T he Patient [...] (11/07/2008) WBC: 8.4 (11/07/2008) Orders: E KG ([id number]) h as a neg stress test and [...] completed EKG Fermin Garcia MD completed SNOMED-CT: [id number] Physical Exam, Performed: Pulse Exam of Foot Fermin Garcia MD completed EKG Fermin Garcia MD completed SNOMED-CT: [id number] Current Medications Documented Fermin Garcia MD completed SNOMED-CT: [id number] Physical Exam, Performed: Pulse Exam of Foot Fermin Garcia MD completed EKG Fermin Garcia MD completed SNOMED-CT: [id number] Current Medications Documented Fermin Garcia MD completed EKG Fermin Garcia MD completed EKG Fermin Garcia MD completed EKG Fermin Garcia MD completed EKG Fermin Garcia MD completed EKG Fermin Garcia MD completed
== END 2024-12-14 14:15 | disposition home or self-care (01) ==
LOC: ANHLAB 12-15 14:16
PROVIDERS: PCP Internal Medicine; Visit Provider Internal Medicine Gastroenterology
DX: Z12.11 Encounter for screening for malignant neoplasm of colon (principal); Z80.0 Family history of malignant neoplasm of digestive organs
CPT/HCPCS: 88305